=== PATIENT | female | born 1980 | race Caucasian/White ===

== ENCOUNTER → 2017-03-10 | Outpatient (CLI) | payer OTHER ==
[~2017-03-10] MED LIST: PEDI-61 PO
--- NOTE | 2017-03-10 16:56 | DIAGNOSTIC IMAGING REPORT ---
PELVIC ULTRASOUND CLINICAL HISTORY: Excessive menstruation. COMPARISON STUDY: None. TECHNIQUE: Transabdominal and transvaginal sonography of the pelvis was performed. FINDINGS: The uterus measures 10 x 3.8 x 4.2 cm. A few nabothian cysts are noted. Endometrium measures 8 mm in thickness. No significant uterine abnormality is identified by sonography. The right ovary measures 3.7 x 1.7 x 2.4 cm and the left measures 4 x 2 x 3 cm and contains a dominant follicle. There is color flow within each ovary. There is no free fluid. IMPRESSION: Unremarkable pelvic ultrasound. Electronically signed by: Tremayne Mcleod M.D. 03/10/2017 4:55 PM Dictated Date/Time: 03/10/2017 4:54 PM
== END | disposition home or self-care (01) ==
LOC: C.ULTR 15:48
PROVIDERS: ATTEND Physician Assistant
DX: N92.0 Excessive and frequent menstruation with regular cycle (principal)